=== PATIENT | male | born 2005 | race Hispanic/Latino ===

== ENCOUNTER 2023-12-15 11:50 | Emergency (ER) | payer OTHER, SELFPAY ==
[2023-12-15 11:53] VITALS: BP 132/81
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
[2023-12-15] MEDS: TORADOL 30 MG IM (13:19)
[2023-12-15 14:13] VITALS: BP 132/81
== END 2023-12-15 14:14 | disposition home or self-care (01) ==
LOC: EMR 11:50
PROVIDERS: EMERGENCY PHYSICIAN Emergency Medicine; FAMILY PHYSICIAN Pediatrics
DX: S20.219A Contusion of unspecified front wall of thorax, initial encounter (principal); V49.59XA Passenger injured in collision with other motor vehicles in traffic accident, initial encounter; Y93.89 Activity, other specified; Y92.410 Unspecified street and highway as the place of occurrence of the external cause; Y99.0 Civilian activity done for income or pay; R03.0 Elevated blood-pressure reading, without diagnosis of hypertension
CPT/HCPCS: 99284; 96372; 71046; 71120; 93005